=== PATIENT | male | born 1970 | race Caucasian/White ===

== ENCOUNTER 2018-12-18 17:07 | Emergency (ER) | payer OTHER ==
[2018-12-18] MEDS: TRIMETHOPRIM/SULFAMETHOX (DS) TAB PO (18:18)
[2018-12-18] MEDS: HYDROCODONE/APAP (5/325) TAB PO (18:19)
[2018-12-18] MEDS: IBUPROFEN 600 MG TAB PO (18:19)
[2018-12-18] MEDS: LIDOCAINE 1% (MDV) 20 ML INJ SC (19:03)
[2018-12-18] MEDS: CEFTRIAXONE 1 GM INJ IM (19:03)
== END 2018-12-18 19:43 | disposition home or self-care (01) ==
LOC: FTE 17:07
DX: S92.902A Unspecified fracture of left foot, initial encounter for closed fracture (principal); F17.210 Nicotine dependence, cigarettes, uncomplicated; V18.4XXA Pedal cycle driver injured in noncollision transport accident in traffic accident, initial encounter
CPT/HCPCS: 73630; 73630-LT; 96372; 99284-25